=== PATIENT | female | born 1990 | race Caucasian/White ===

== ENCOUNTER 2019-04-25 22:16 | Emergency (ER) | payer MEDICAID ==
[~2019-04-25] VITALS: Ht 162.6 cm; Wt 54.0 kg
[2019-04-25] MEDS ORDERED: HALOPERIDOL LACTATE 5MG/ML VIAL IM ONE (23:15)
[2019-04-25] MEDS ORDERED: LORAZEPAM 2MG/ML CPJ IM ONE (23:15)
[2019-04-26 04:56] VITALS: BP 121/74
== END 2019-04-26 10:01 | disposition home or self-care (01) ==
LOC: ER 22:16
DX: F10.129 Alcohol abuse with intoxication, unspecified (principal); Y90.8 Blood alcohol level of 240 mg/100 ml or more
CPT/HCPCS: 36415; 80320; 96372; 99283; J1630; J2060; G0480